=== PATIENT | male | born 1990 | race Caucasian/White ===

== ENCOUNTER 2017-12-03 07:39 | Emergency (ER) | payer OTHER ==
[2017-12-03 07:41] VITALS: BMI 28.0
[2017-12-03] MEDS ORDERED: NS 1000 ML 1,000 ML ONE (07:43)
[2017-12-03] MEDS ORDERED: ZOFRAN INJ 4 MG VIAL ONE (07:46)
[2017-12-03] MEDS ORDERED: TORADOL 30 MG VIAL ONE (07:46)
[2017-12-03] MEDS ORDERED: ZOFRAN INJ 4 MG VIAL IVP ONE (07:49)
[2017-12-03] MEDS ORDERED: TORADOL 30 MG VIAL IVP ONE (07:49)
[2017-12-03] MEDS ORDERED: NS 1000 ML 1,000 ML IV ONE (07:49)
[2017-12-03 07:53] VITALS: BP 145/86
--- NOTE | 2017-12-03 08:05 | DR.GENAD ---
HPI - PCP Primary Care Physician: NFD - Complaint/Symptoms Chief Complaint Doctors Comments: Started 5am today, pt withprior kidney stones x 2, this feels similar Chief Complaint:: PT. C/O LEFT FLANK PAIN THAT BEGAN THIS MORNING. - Nurses notes reviewed Nurses Notes Review: Yes - Source History Provided: Patient - Mode of Arrival Mode of Arrival: Ambulatory - Timing Onset of Chief Complaint: 12/03/17 Came on: Suddenly - Duration Duration: Since Onset How lon Duration: Hours - Severity Severity: Moderate PMH - PMH Past Medical History: Yes Past Medical History: Kidney Stones Past Surgical History: Yes Surgical History: Lithotripsy - Family History History of Family Medical Conditions: No - Social History Does patient currently use any type of tobacco product: No Have you used tobacco products in the last 12 months: No Type of Tobacco Use: None Does any household member use tobacco: No Alcohol Use: None Do you use any recreational Drugs:: No Lives With: Family Lives Where: Home - infectious screening In the last 2 months have you had wt loss of >10#?: NO Have you had fever, night sweats or hemotysis?: No Have you traveled outside the country in the last 6 months?: No Isolation: Standard ROS - Review of Systems Constitutional: See HPI Eyes: No Symptoms Reported ENTM: No Symptoms Reported Respiratoy: No Symptoms Reported Cardiovascular: No Symptoms Reported Gastrointestinal/Abdominal: Nausea, Vomiting Neurological: No Symptoms Reported Integumentary: No Symptoms Reported Hematologic/Lymphatic: No Symptoms Reported Endocrine: No Symptoms Reported Psychiatric: No Symptoms Reported All Other Systems: Reviewed and Negative PE - Vital Signs Vitals: Temperature 97 F Pulse Rate 84 Respiratory Rate 20 Blood Pressure 145/86 O2 Sat by Pulse Oximetry 100 - General Limitations: No Limitations General Appearance: Alert - Head Head Exam: Normal Inspection - Eyes Eye exam: Normal Appearance - ENT ENT Exam: Normal Exam - Neck Neck Exam: Normal Inspection, Full ROM, Trachea Midline - Respiratory Respiratory Exam: Normal Lung Sounds Bilat Respiratory Exam: Bilateral Clear to Auscultation - Cardiovascular Cardiovascular Exam: Regular Rate, Normal Rhythm - Abdominal Exam Abdominal Exam: Normal Inspection, Normal Bowel Sounds, Soft - Extremities Extremities Exam: Normal Inspection. negative: Tenderness - Back Back Exam: Normal Inspection, (L) CVA Tenderness - Neurologic Neurological Exam: Alert, Oriented X3 - Psychiatric Psychiatric Exam: Normal Affect, Normal Mood - Skin Skin Exam: Warm, Dry, Intact ROR - XRAY XRAY Interpreted by: Radiologist XRAY Findings: 2mm left sided stone at UVJ, mild hydro, bilat kidney stones - Diagnosis Discharge Problem: Ureteral stone with hydronephrosis - Discharge Plan Disposition: HOME, SELF-CARE Condition: Good Prescriptions: Ketorolac Tromethamine [Toradol Tab] 10 mg PO Q8H PRN #12 tab PRN Reason: Pain Tamsulosin HCl [Flomax] 0.4 mg PO DAILY #12 cap - Follow ups/Referrals Follow ups/Referrals: NFD,None [Primary Care Provider] - 3 days - Instructions
--- NOTE | 2017-12-03 08:25 | CT ---
HISTORY: Left flank pain, possible kidney stone Study: CT abdomen and pelvis without IV or oral contrast Comparison: No priors Technique: Multiple axial images of the abdomen and pelvis were obtained from the lung bases to the pubic symphy sis without the administration of IV or oral contrast. Coronal and sagittal images are also reviewed . Dose reduction techniques utilized automatic exposure control. Findings: The visualized portions of the lung bases are unremarkable. The liver, spleen, pancreas, and adrenal glands are unremarkable in their CT appearance. The gallbladder is unremarkable in its CT appearance . Small bilateral kidney stones present. The largest stone is present on the right side measuring abo ut 4 mm in diameter. There is left-sided hydronephrosis and hydroureter, very mild. This is seen to b e due to a 2 mm stone present at the region of the left ureteral orifice. No hydronephrosis is seen o n the right. There is no evidence of renal mass. No significant mesenteric lymphadenopathy or strand ing can be observed. No free fluid or free air is seen within the abdomen. No bowel wall thickening or bowel dilatation is present. The colon is unremarkable. Specifically, there is no diverticulosi s noted within the sigmoid colon. The urinary bladder is grossly unremarkable. The bony structures a re grossly intact. IMPRESSION: Small bilateral kidney stones. Left-sided hydronephrosis and hydroureter secondary to a 2 mm stone present at the level of the left ureteral orifice. Reported By:
== END 2017-12-03 08:45 | disposition home or self-care (01) ==
LOC: ER 07:52
DX: N13.2 Hydronephrosis with renal and ureteral calculous obstruction (principal)
CPT/HCPCS: 74176; 96365; 96374; 96375; 99282; 99283; A4222; J1885; J2405